=== PATIENT | male | born 1985 | race Caucasian/White ===

== ENCOUNTER 2020-07-25 11:31 | Emergency (ER) | payer SELFPAY ==
[2020-07-25 12:04] VITALS: PULSE 83; RESP 18; TEMP 36.6; O2SAT 99; BMI 34.9
[2020-07-25 12:56] LABS: COVID-19 Test Positive (Negative)
[2020-07-25 13:41] VITALS: BP 132/66; PULSE 85; RESP 16; TEMP 36.6; O2SAT 99
--- NOTE | 2020-07-25 13:52 | ED.URI ---
HPI - URI/Sore Throat General Chief Complaint: Upper Respiratory Symptoms Stated Complaint: chest tightness Time Seen by Provider: 07/25/20 12:10 Source: patient Mode of arrival: ambulatory Limitations: no limitations History of Present Illness MD elicited complaint: cough and rhinorrhea Pertinent past history: asthma Onset (ago): day(s) (3) Severity: moderate Description of mucous: clear Able to tolerate fluids by mouth: Yes Associated symptoms: denies other symptoms Treatments prior to arrival: none Related Data Previous Rx's Medication Instructions Recorded azithromycin [Zithromax Z-Mina] 250 mg PO DAILY 5 Days #6 tab 07/25/20 prednisone 40 mg PO DAILY 5 Days #10 tab 07/25/20 Allergies Allergy/AdvReac Type Severity Reaction Status Date / Time No Known Allergies Allergy Verified 07/25/20 12:11 Review of Systems Review of Systems: Constitutional: No Weight loss, No Fever, No Chills, No Night Sweats, No Fatigue, No Malaise ENT/Mouth: No Hearing loss, No Ear Pain, No Nasal Congestion, No Sinus Pain, No Hoarseness, No sore throat, No Rhinorrhea, No Swallowing Difficulty Eyes: No Eye Pain, No Swelling, No Redness, No Foreign Body, No Discharge, No Vision Changes Cardiovascular: No Chest Pain, No SOB, No Dyspnea on Exertion, No Orthopnea, No Edema, No Palpitations Respiratory: + Cough, No Sputum, + Wheezing, No Smoke Exposure, No Dyspnea Gastrointestinal: No Nausea, No Vomiting, No Diarrhea, No Constipation, No abdominal Pain, No Hematochezia, No Melena Genitourinary: No Dysuria, No Urinary Frequency, No Hematuria, No Urinary Incontinence, No Urgency, No Flank Pain Musculoskeletal: No joint pain, No Myalgias, No Joint Swelling Skin: No Skin Lesions, No rash Neuro: No Weakness, No Numbness, No Paresthesias, No Loss of Consciousness, No Dizziness, No Headache Psych: No Social Issues Heme/Lymph: No Bruising, No Bleeding,No Lymphadenopathy Endocrine: No Polyuria, No Polydipsia, No Temperature Intolerance Yes all other systems are reviewed and are negative [facility] Social History Social History Advance Directives: No Advance Directives Information Provided: No Physical Exam Vital Signs: Vital Signs: Last Vital Signs Temp 98 F 07/25/20 13:41 Pulse 85 01/12/21 13:41 Resp 16 07/25/20 13:41 BP 132/66 07/25/20 13:41 Pulse Ox 99 07/25/20 13:41 Body Mass Index 34.9 Reviewed Const: General: cooperative and healthy appearing; No acute distress or intoxicated appearing Nutritional Appearance: average body habitus Orientation/consciousness: patient oriented x3 HENMT: Head: Yes normal to inspection Ears: hearing grossly normal bilaterally Eyes: General: appearance normal, both eyes and all related structures Visual Wynn: normal visual wynn by confrontation Neck: Neck: Yes normal visual inspection, No positive Brudzinski's sign, No positive Kernig's sign and No tender Thyroid: Thyroid normal Chest: Chest palpation & inspection: normal inspection of the chest Resp: Effort & Inspection: normal respiratory effort Auscultation: clear to auscultation bilaterally Cardio: Jugular venous distension: no JVD Rhythm: regular rhythm Heart sounds: S1 normal heart sound present and S2 normal heart sound present GI: Inspection: Yes normal to inspection Percussion: Yes normal to percussion Auscultation: normal bowel sounds : General: Yes no CVA tenderness Back/Spine/Pelvis: Back: no CVA tenderness Skin: General skin exam: no rashes or lesions noted Neuro: General: patient oriented x3 Extrem: General: Yes normal to inspection Course Course Course Narrative: Well nontoxic appearing. Hemodynamically stable. Pulse ox 100% on room air. Does have mild dry bronchial cough improved with nebulizer. Will be discharged home with supportive care return follow-up instructions. COVID positive. MDM - URI/Sore Throat Lab Data Labs: Lab Results 07/25/20 Range/Units 12:18 COVID-19 (EMRE) Positive A (Negative) COVID-19 Clin Com See Note Discharge Plan Discharge Clinical Impression: Asthma with exacerbation, COVID-19 Patient Disposition: Home, Self-Care Instructions: Acute Cough (ED), COVID-19 (Coronavirus Disease 2019) (ED) Additional Instructions: Five they said for 14 days Social distancing Face covering Take medication as prescribed Return if any concerns or worsening symptoms Otherwise do a phone follow-up with her primary care doctor in 1-2 weeks Thank you Prescriptions: New azithromycin [Zithromax Z-Mina] 250 mg tablet 250 mg PO DAILY 5 Days Qty: 6 RF: 0 prednisone 20 mg tablet 40 mg PO DAILY 5 Days Qty: 10 RF: 0 Referrals: ED Physician,Generic [Physician] - 1 week
== END 2020-07-25 14:24 | disposition home or self-care (01) ==
PROVIDERS: Nurse Practitioner Primary Care; Emergency Provider Emergency Medicine Emergency Medical Services
DX: U07.1 COVID-19 (principal); J45.901 Unspecified asthma with (acute) exacerbation; R05 Cough
CPT/HCPCS: 36415; 87635; 99283

== ENCOUNTER 2024-10-31 22:50 | Emergency (ER) | payer OTHER, SELFPAY ==
[2024-10-31 23:14] VITALS: BP 124/75; PULSE 85; RESP 18; TEMP 36.7; O2SAT 98; BMI 35.5
[2024-10-31 23:32] VITALS: BP 137/81; PULSE 85; RESP 16; TEMP 37; O2SAT 99
--- NOTE | 2024-11-01 00:09 | ED.GENADULT ---
HPI - General Adult General Chief complaint: General Medical Stated complaint: body aches/cough/diarrhea Time Seen by Provider: 11/01/24 00:08 Source: patient Mode of arrival: ambulatory Limitations: no limitations History of Present Illness ED Provider: HPI narrative: Patient with URI symptoms since yesterday at work under co-worker was positive for RSV complaining of body aches cough which is mostly dry occasional phlegm does have history of asthma Related Data Previous Rx's ?Medication ?Instructions ?Recorded azithromycin 250 mg tablet 250 mg PO DAILY 5 days #6 tabs 07/25/20 (Zithromax Z-Mina) prednisone 20 mg tablet 40 mg (2 x 20 mg) PO DAILY 5 days 07/25/20 #10 tabs ibuprofen 600 mg tablet 600 mg PO Q6H PRN fever or pain 11/01/24 #30 tabs Allergies Allergy/AdvReac Type Severity Reaction Status Date / Time Penicillins Allergy Swelling Verified 10/31/24 23:18 Review of Systems Review of Systems: Yes all other systems are reviewed and are negative [facility] Social History Social History Smoked in Last 30 Days: Yes Use of substances other than those prescribed or required for medical reasons: Yes Substance Use Type: Marijuana Substance Use Frequency: Daily Advance Directives: No Advance Directives Information Provided: Yes Physical Exam ED Vital Signs: Vital Signs - 24 hr 10/31/24 23:14 10/31/24 23:32 11/01/24 02:12 Temperature 98.1 F 98.6 F 98.6 F Pulse Rate 85 85 85 Respiratory Rate 18 16 16 Blood Pressure 124/75 137/81 137/81 Pulse Oximetry 98 99 99 Oxygen Delivery Method Room Air Room Air Room Air BMI result Body Mass Index 35.5 Appearance: Alert. Oriented X3. No acute distress. Eyes: no pallor or icterus ENT: Pharynx normal Oral Mucosa moist tympanic membrane intact no erythema, clear rhinorrhea Neck: Normal inspection. Neck supple. CVS: Normal heart rate and rhythm. Pulses normal. Respiratory: No respiratory distress. Equal air entry bilateral, no wheezing/rales/rhonchi Abd: soft, not tender Skin: Skin warm and dry. Normal skin color. Normal skin turgor. Extremities: No lower extremity edema, no calf tenderness Neuro: Oriented X 3. Medical Decision Making Medical Decision Making MDM Narrative: Patient with URI likely viral strep is negative,COVID flu and RSV also negative Lab Data MDM Lab Attestation statement: I reviewed the patient's lab results. Labs: Lab Results 10/31/24 11/01/24 Range/Units 23:32 01:12 Influenza Type A (PCR) NEGATIVE (Negative) Influenza Type B (PCR) NEGATIVE (Negative) RSV RNA Qual (PCR) NEGATIVE (Negative) SARS-CoV-2 RNA (RT-PCR) NEGATIVE (Negative) S. pyogenes GrpA YASH Negative (Negative) Discharge Plan Discharge Clinical Impression: Upper respiratory infection, viral Patient Disposition: Home, Self-Care Instructions: Upper Respiratory Infection (DC) Additional Instructions: Your COVID flu RSV and strep throat is negative Likely have some other virus causing the symptoms Drink plenty of fluids Tylenol/Motrin for fever, pain Prescriptions: New ibuprofen 600 mg tablet 600 mg PO Q6H PRN (Reason: fever or pain) Qty: 30 0RF No Action azithromycin [Zithromax Z-Mina] 250 mg tablet 250 mg PO DAILY 5 Days Qty: 6 0RF prednisone 20 mg tablet 40 mg PO DAILY 5 Days Qty: 10 0RF Stand Alone Forms: Work/School Release Interventions: ED Discharge Assessment Last Done: 11/01/24 02:12 Discharge Date/Time: 11/01/24 02:13 Print Language: Maltese
[2024-11-01 00:16] LABS: Influenza A PCR NEGATIVE (Negative); Influenza B PCR NEGATIVE (Negative); Resp Syncy Virus RNA Qual PCR NEGATIVE (Negative); SARS COV2 PCR INHOUSE NEGATIVE (Negative)
[2024-11-01 01:43] LABS: IDNOW Serial# 58CA691E; Strep A Nucleic Acid Negative (Negative)
[2024-11-01 02:12] VITALS: BP 137/81; PULSE 85; RESP 16; TEMP 37; O2SAT 99
== END 2024-11-01 02:13 | disposition home or self-care (01) ==
PROVIDERS: Emergency Provider Internal Medicine
DX: J06.9 Acute upper respiratory infection, unspecified (principal); M79.10 Myalgia, unspecified site; Z03.818 Encounter for observation for suspected exposure to other biological agents ruled out
CPT/HCPCS: 0241U; 87651; 99283; 99284